=== PATIENT | female | born 1975 | race Hispanic/Latino ===

== ENCOUNTER 2017-11-24 23:09 | Emergency (ER) | payer MEDICAID, OTHER ==
[2017-11-25 00:26] LABS: APPEARANCE,URINE Cloudy (CLEAR); BILIRUBIN,URINE Negative (NEGATIVE); COLOR,URINE Yellow (YELLOW); GLUCOSE, URINE (UA) Negative (NEGATIVE); KETONES,URINE Negative (NEGATIVE); LEUKOCYTE ESTERASE ,URINE Large (NEGATIVE); NITRATE,URINE Negative (NEGATIVE); OCCULT BLOOD,URINE Moderate (NEGATIVE); PH,URINE 6.5 (5.0-8.0); PROTEIN,URINE Negative (NEGATIVE); UROBILINOGEN,URINE 0.2 mg/dL (0.2-1.0)
[2017-11-25 00:37] LABS: HCG,QUAL RESULT NEGATIVE (NEGATIVE)
[2017-11-25 00:43] LABS: BACTERIA,URINE Few /HPF (None Seen); MUCUS,URINE Moderate LPF (None Seen); SQUAMOUS EPITHELIAL CELL,UR Moderate /LPF (0-2)
[2017-11-25 00:47] LABS: BASOPHILS % (AUTO) 0.5 % (0.0-5.0); EOSINOPHILS % (AUTO) 1.3 % (0.0-8.0); HEMATOCRIT 38.4 % (36-48); LYMPHOCYTES % (AUTO) 20.4 % (21.0-51.0); MEAN CORPUSCULAR HEMOGLOBIN 23.6 pg (27.0-33.0); MEAN CORPUSCULAR HGB CONC 31.4 g/dL (32.0-36.0); MEAN CORPUSCULAR VOLUME 75.4 fL (79-99); MONOCYTES % (AUTO) 5.3 % (3.0-13.0); NEUTROPHILS % (AUTO) 72.5 % (40.0-77.0); PLATELET COUNT (AUTO) 319 K/uL (130-400); RED BLOOD CELL COUNT(AUTO) 5.09 MIL/uL (4.00-5.50); RED CELL DISTRIBUTION WIDTH 16.6 % (11.0-15.5); WHITE BLOOD COUNT (AUTO) 13.3 K/uL (4.8-10.8)
[2017-11-25 00:54] LABS: POTASSIUM 3.2 mmol/L (3.5-5.1)
[2017-11-25 00:58] LABS: AMYLASE 29 U/L (25-115); LIPASE 91 U/L (114-286)
[2017-11-25 01:03] LABS: ALBUMIN 3.4 g/dL (3.5-5.0); BILIRUBIN,TOTAL 0.3 mg/dL (0.2-1.0); TOTAL PROTEIN, SERUM 8.5 g/dL (6.0-8.3)
[2017-11-25] MEDS ORDERED: CEFTRIAXONE SODIUM 1 GM ONE (01:13)
[2017-11-25] MEDS ORDERED: SODIUM CHLORIDE 0.9% 1000ML 1,000 ML IV ONE (01:13)
[2017-11-25] MEDS ORDERED: KETOROLAC TROMETHAMINE 30MG/ML ONE (01:13)
== END 2017-11-25 04:13 | disposition home or self-care (01) ==
LOC: EDH 23:09
DX: N10 Acute pyelonephritis (principal); M79.1 Myalgia
CPT/HCPCS: 36415; 71045; 74176; 80053; 81001; 81025; 82150; 83690; 85025; 87088; 96361; 96374; 96375; 99285; A4218; J0696; J1885; J7030

== ENCOUNTER → 2018-10-01 | Outpatient (CLI) | payer MEDICAID ==
--- NOTE | 2018-10-01 11:16 | NUR ---
MBSS COMPLETED. SHALLOW PENETRATION WITH THIN LIQUIDS. RECOMMEND REGULAR TEXTURE, THIN LIQUIDS; PILLS WHOLE WITH LIQUIDS. PATIENT INFORMATION: Pt IS A 43 YEAR OLD FEMALE REFERRED FOR AN MBSS SECONDARY TO RECENT THYROID NODULES. Pt REPORTS THAT SHE HAS DIFFICULTY SWALLOWING IN OCCASIONS. Pt REPORTS THAT BIOPSY OF NODULE WAS NEGATIVE. Pt WITH A PAST MEDICAL HISTORY SIGNIFICANT FOR HYPERTENSION. 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 RESULTING IN SHALLOW FLASH PENETRATION WITH THIN LIQUIDS VIA CUP SIP. NO ASPIRATION OR DEEP PENETRATION PRESENT WITH ANY TEXTURE. TRIALS: 1. TSP PUREED: GOOD 2. TSP PUDDING: GOOD 3. TSP: MIXED TEXTURE: GOOD 4. COOKIE: GOOD 5. CUP SIP THIN LIQUIDS: SHALLOW PENETRATION 6. STRAW SIP THIN LIQUIDS: GOOD RECOMMENDATIONS: 1. REGULAR SOLIDS, THIN LIQUIDS; PILLS WHOLE WITH LIQUIDS 2. COMPENSATORY STRATEGIES: *SEATED AT 90 *SLOW RATE G-CODES SWALLOWING: [id number] Addendum: 10/02/18 at [address] Amended: Links added.
== END | disposition home or self-care (01) ==
LOC: RAH 10:40
PROVIDERS: ATTEND Otolaryngology Plastic Surgery within the Head & Neck
DX: R13.10 Dysphagia, unspecified (principal); R63.3 Feeding difficulties
CPT/HCPCS: 74230; 92611

== ENCOUNTER 2019-10-13 17:39 | Emergency (ER) | payer MEDICAID ==
[2019-10-13] MEDS ORDERED: SODIUM CHLORIDE 0.9% 1000ML 1,000 ML IV ONE (18:42)
[2019-10-13 18:47] LABS: APPEARANCE,URINE Clear (CLEAR); BILIRUBIN,URINE Negative (NEGATIVE); COLOR,URINE Yellow (YELLOW); GLUCOSE, URINE (UA) Negative (NEGATIVE); KETONES,URINE Negative (NEGATIVE); LEUKOCYTE ESTERASE ,URINE Negative (NEGATIVE); NITRATE,URINE Negative (NEGATIVE); OCCULT BLOOD,URINE Small (NEGATIVE); PH,URINE 8.5 (5.0-8.0); PROTEIN,URINE Negative (NEGATIVE); UROBILINOGEN,URINE 0.2 mg/dL (0.2-1.0)
[2019-10-13] MEDS ORDERED: ACETAMINOPHEN EXTRA STRENGTH 500 MG TABLET ONE (18:47)
[2019-10-13 19:15] LABS: BACTERIA,URINE Few /HPF (None Seen); MUCUS,URINE Few LPF (None Seen); SQUAMOUS EPITHELIAL CELL,UR Few /HPF (0-2)
[2019-10-13 20:07] LABS: RAPID GROUP A STREP POSITIVE (NEGATIVE)
[2019-10-13] MEDS ORDERED: METOPROLOL TARTRATE 1 MG/ML 5ML VIAL IV ONE (21:10)
== END 2019-10-13 21:35 | disposition home or self-care (01) ==
LOC: EEVIPCON 17:39 → EDH 17:39
DX: J10.1 Influenza due to other identified influenza virus with other respiratory manifestations (principal); I10 Essential (primary) hypertension; Z90.49 Acquired absence of other specified parts of digestive tract; Z98.51 Tubal ligation status
CPT/HCPCS: 71046; 81001; 87804 ×2; 87880; 93005; 96374; 99285; J3490; J7030

== ENCOUNTER 2020-03-07 22:06 | Emergency (ER) | payer MEDICAID ==
[2020-03-07] MEDS ORDERED: ACETAMINOPHEN EXTRA STRENGTH 500 MG TABLET ONE (22:36)
[2020-03-07 23:28] LABS: RAPID GROUP A STREP NEGATIVE (NEGATIVE)
== END 2020-03-08 01:05 | disposition home or self-care (01) ==
LOC: EDH 22:06
DX: J02.9 Acute pharyngitis, unspecified (principal); R50.9 Fever, unspecified; R05 Cough; Z20.828 Contact with and (suspected) exposure to other viral communicable diseases; E03.9 Hypothyroidism, unspecified; I10 Essential (primary) hypertension
CPT/HCPCS: 36415; 71045; 87635; 87804; 87880

== ENCOUNTER 2020-03-19 | Emergency (ER) | payer MEDICAID | END 2020-03-19 17:24 | disposition home or self-care (01) | DX: U07.1 COVID-19 (principal); J12.89 Other viral pneumonia; R05 Cough; I10 Essential (primary) hypertension; E03.9 Hypothyroidism, unspecified; Z90.49 Acquired absence of other specified parts of digestive tract; Z98.890 Other specified postprocedural states ==

== ENCOUNTER → 2020-05-29 | Outpatient (CLI) | payer MEDICAID | END | disposition home or self-care (01) | LOC: RAH 10:27 | PROVIDERS: ATTEND Family Medicine | DX: E04.2 Nontoxic multinodular goiter (principal); E04.1 Nontoxic single thyroid nodule | CPT/HCPCS: 76536 ==

== ENCOUNTER 2020-06-22 15:37 | Emergency (ER) | payer MEDICAID ==
[2020-06-22 15:56] LABS: BASOPHILS % (AUTO) 0.3 % (0.0-5.0); EOSINOPHILS % (AUTO) 0.5 % (0.0-8.0); HEMATOCRIT 41.4 % (36-48); LYMPHOCYTES % (AUTO) 12.3 % (21.0-51.0); MEAN CORPUSCULAR HEMOGLOBIN 25.1 pg (27.0-33.0); MEAN CORPUSCULAR HGB CONC 31.6 g/dL (32.0-36.0); MEAN CORPUSCULAR VOLUME 79.5 fL (79-99); MONOCYTES % (AUTO) 4.4 % (3.0-13.0); PLATELET COUNT (AUTO) 293 K/uL (130-400); RED BLOOD CELL COUNT(AUTO) 5.21 MIL/uL (4.00-5.50); RED CELL DISTRIBUTION WIDTH 14.2 % (11.0-15.5); WHITE BLOOD COUNT (AUTO) 14.8 K/uL (4.8-10.8)
[2020-06-22 16:08] LABS: POTASSIUM 3.6 mmol/L (3.5-5.1)
[2020-06-22 16:13] LABS: ALBUMIN 3.9 g/dL (3.5-5.0); BILIRUBIN,TOTAL 0.5 mg/dL (0.2-1.0); TOTAL PROTEIN, SERUM 8.8 g/dL (6.0-8.3)
[2020-06-22 16:15] LABS: INR 0.94 (0.85-1.15); PARTIAL THROMBOPLASTIN TIME 27.9 SEC (26.3-35.5); PROTHROMBIN TIME 10.2 SEC (9.6-11.6)
[2020-06-22] MEDS ORDERED: DIAZEPAM 5 MG/ML 2 ML SYG ONE (17:28)
[2020-06-22] MEDS ORDERED: IOHEXOL-350 50ML VIAL IV ONE (17:28)
== END 2020-06-22 20:04 | disposition home or self-care (01) ==
LOC: EDH 15:37
DX: E00-E89 Endocrine, nutritional and metabolic diseases (principal); I10 Essential (primary) hypertension; E03.9 Hypothyroidism, unspecified; Z90.49 Acquired absence of other specified parts of digestive tract; Y83.8 Other surgical procedures as the cause of abnormal reaction of the patient, or of later complication, without mention of misadventure at the time of the procedure; Y92.89 Other specified places as the place of occurrence of the external cause
CPT/HCPCS: 36415; 70491; 71045; 80053; 85025; 85610; 85730; 96374; 99285; J3360; Q9967

== ENCOUNTER 2021-08-16 17:36 | Emergency (ER) | payer MEDICAID ==
[~2021-08-16] VITALS: Ht 162.6 cm; Wt 83.0 kg
[2021-08-16 17:39] VITALS: BP 157/104
[2021-08-16 18:16] LABS: BASOPHILS % (AUTO) 0.3 % (0.0-5.0); EOSINOPHILS % (AUTO) 0.8 % (0.0-8.0); HEMATOCRIT 41.6 % (36-48); MEAN CORPUSCULAR HEMOGLOBIN 24.7 pg (27.0-33.0); MEAN CORPUSCULAR HGB CONC 30.5 g/dL (32.0-36.0); MEAN CORPUSCULAR VOLUME 80.9 fL (79-99); MONOCYTES % (AUTO) 5.9 % (3.0-13.0); NEUTROPHILS % (AUTO) 71.4 % (40.0-77.0); PLATELET COUNT (AUTO) 307 K/uL (130-400); RED BLOOD CELL COUNT(AUTO) 5.14 MIL/uL (4.00-5.50); RED CELL DISTRIBUTION WIDTH 14.8 % (11.0-15.5); WHITE BLOOD COUNT (AUTO) 13.2 K/uL (4.8-10.8)
[2021-08-16 18:18] LABS: APPEARANCE,URINE Clear (CLEAR); BILIRUBIN,URINE Negative (NEGATIVE); COLOR,URINE Yellow (YELLOW); GLUCOSE, URINE (UA) Negative (NEGATIVE); KETONES,URINE Negative (NEGATIVE); LEUKOCYTE ESTERASE ,URINE Moderate (NEGATIVE); NITRATE,URINE Negative (NEGATIVE); OCCULT BLOOD,URINE Moderate (NEGATIVE); PH,URINE 6.5 (5.0-8.0); PROTEIN,URINE Negative (NEGATIVE); UROBILINOGEN,URINE 0.2 mg/dL (0.2-1.0)
[2021-08-16 18:25] LABS: BACTERIA,URINE Few /HPF (None Seen); SQUAMOUS EPITHELIAL CELL,UR Few /HPF (0-2)
[2021-08-16 18:27] LABS: CREATININE 1.1 mg/dL (0.5-1.5); POTASSIUM 3.8 mmol/L (3.5-5.1)
[2021-08-16] MEDS ORDERED: 0.9%NACL 1000ML 1,000 ML IV ONE (18:30)
[2021-08-16] MEDS ORDERED: ONDANSETRON 4MG INJ IVP ONE (18:30)
[2021-08-16] MEDS ORDERED: KETOROLAC 30MG VIAL (30MG/ML) IV ONE (18:30)
[2021-08-16 18:31] LABS: ALBUMIN 3.8 g/dL (3.5-5.0); BILIRUBIN,TOTAL 0.3 mg/dL (0.2-1.0); TOTAL PROTEIN, SERUM 8.8 g/dL (6.0-8.3)
[2021-08-16] MEDS ORDERED: CEPH500B PO (19:03)
[2021-08-16] MEDS ORDERED: PHEN-847 PO (19:03)
[2021-08-16] MEDS ORDERED: CEFTRIAXONE 1G VIAL IVP ONE (19:30)
== END 2021-08-16 19:30 | disposition home or self-care (01) ==
LOC: EDH 17:36
DX: N39.0 Urinary tract infection, site not specified (principal); E03.9 Hypothyroidism, unspecified; I10 Essential (primary) hypertension; Z90.49 Acquired absence of other specified parts of digestive tract; Z98.51 Tubal ligation status
CPT/HCPCS: 36415; 74176; 80053; 81001; 83690; 85025; 87088; 96361; 96374; 96375; 99284; J0696; J1885; J2405; J7030

== ENCOUNTER 2023-11-20 10:31 | Emergency (ER) | payer MEDICAID ==
[~2023-11-20] VITALS: Ht 162.6 cm; Wt 85.7 kg
[~2023-11-20 10:31] MED LIST: CEPH500B PO; PHEN-847 PO
[2023-11-20 11:21] LABS: HEMATOCRIT 40.7 % (36-48); MEAN CORPUSCULAR HEMOGLOBIN 24.4 pg (27.0-33.0); MEAN CORPUSCULAR VOLUME 81.2 fL (79-99); PLATELET COUNT (AUTO) 320 K/uL (130-400); RED BLOOD CELL COUNT(AUTO) 5.01 MIL/uL (4.00-5.50); RED CELL DISTRIBUTION WIDTH 15.4 % (11.0-15.5); WHITE BLOOD COUNT (AUTO) 9.6 K/uL (4.8-10.8)
[2023-11-20 11:33] LABS: CREATININE 0.8 mg/dL (0.5-1.5); POTASSIUM 3.9 mmol/L (3.5-5.1)
[2023-11-20] MEDS ORDERED: ALCA5DRO OP (14:18)
[2023-11-20] MEDS ORDERED: LORA10TA7 PO (14:19)
[2023-11-20 14:43] VITALS: BP 133/78; PULSE 78; RESP 18; O2SAT 98
== END 2023-11-20 14:50 | disposition home or self-care (01) ==
LOC: EDH 10:31
DX: B30.9 Viral conjunctivitis, unspecified (principal); I10 Essential (primary) hypertension; E03.9 Hypothyroidism, unspecified; Z90.49 Acquired absence of other specified parts of digestive tract; Z98.890 Other specified postprocedural states
CPT/HCPCS: 36415; 80048; 85027

== ENCOUNTER 2024-03-22 11:47 | Emergency (ER) | payer MEDICAID, OTHER ==
[~2024-03-22] VITALS: Ht 162.6 cm; Wt 83.9 kg
[~2024-03-22 11:47] MED LIST changes: +ALCA5DRO OP; +LORA10TA7 PO
[2024-03-22 12:16] LABS: BASOPHILS # (AUTO) 0.04 K/uL (0.00-0.20); BASOPHILS % (AUTO) 0.3 % (0.0-5.0); EOSINOPHILS # (AUTO) 0.11 K/uL (0.00-0.70); EOSINOPHILS % (AUTO) 0.8 % (0.0-8.0); HEMATOCRIT 42.3 % (36-48); IMMATURE GRANULOCYTE ABSOLUTE 0.07 K/uL (0-1); LYMPHOCYTES # (AUTO) 2.5 K/uL (1.0-4.8); LYMPHOCYTES % (AUTO) 19.2 % (21.0-51.0); MEAN CORPUSCULAR HEMOGLOBIN 23.9 pg (27.0-33.0); MEAN CORPUSCULAR HGB CONC 30.7 g/dL (32.0-36.0); MEAN CORPUSCULAR VOLUME 77.8 fL (79-99); MONOCYTES # (AUTO) 0.5 K/uL (0.1-1.0); MONOCYTES % (AUTO) 3.6 % (3.0-13.0); NEUTROPHILS # (AUTO) 9.9 K/uL (1.8-7.7); NEUTROPHILS % (AUTO) 75.6 % (40.0-77.0); PLATELET COUNT (AUTO) 312 K/uL (130-400); RED BLOOD CELL COUNT(AUTO) 5.44 MIL/uL (4.00-5.50); WHITE BLOOD COUNT (AUTO) 13.1 K/uL (4.8-10.8)
[2024-03-22 12:40] LABS: CREATININE 0.9 mg/dL (0.5-1.0)
[2024-03-22 12:44] LABS: ALBUMIN 3.3 g/dL (3.5-5.0); BILIRUBIN,TOTAL 0.7 mg/dL (0.2-1.0); TOTAL PROTEIN, SERUM 8.1 g/dL (6.0-8.3)
[2024-03-22] MEDS: KETOROLAC 30MG VIAL (30MG/ML) IVP ONE (12:52)
[2024-03-22] MEDS: 0.9%NACL 1000ML 1,000 ML IV ONE (12:53)
[2024-03-22 13:03] LABS: APPEARANCE,URINE CLOUDY (CLEAR); BILIRUBIN,URINE NEGATIVE (NEGATIVE); COLOR,URINE YELLOW (YELLOW); GLUCOSE, URINE (UA) NEGATIVE (NEGATIVE); KETONES,URINE NEGATIVE (NEGATIVE); LEUKOCYTE ESTERASE ,URINE 250 Leu/uL (NEGATIVE); NITRATE,URINE NEGATIVE (NEGATIVE); OCCULT BLOOD,URINE LARGE (NEGATIVE); PH,URINE 5.5 (5.0-8.0); PROTEIN,URINE 70 mg/dL (NEGATIVE); UROBILINOGEN,URINE 0.2 mg/dL (0.2-1.0)
[2024-03-22 13:04] LABS: ADD UA MICROSCOPIC YES
[2024-03-22 13:06] LABS: BACTERIA,URINE MOD /HPF (None Seen); MUCUS,URINE RARE LPF (None Seen); SQUAMOUS EPITHELIAL CELL,UR MANY /HPF (0-2)
[2024-03-22] MEDS: CEFTRIAXONE 1G VIAL IM ONE (14:30)
[2024-03-22] MEDS ORDERED: IOHEXOL 350 MG/ML 100ML INFUS..BTL IV ONE (14:37)
[2024-03-22] MEDS ORDERED: IOHEXOL-350 75 ML VIAL IV ONE (14:56)
[2024-03-22] MEDS ORDERED: AMOX1TAB16 PO (15:46)
[2024-03-22] MEDS ORDERED: IBUP-2077 PO (15:46)
[2024-03-22 16:05] VITALS: BP 156/101; PULSE 66; RESP 17; O2SAT 98
== END 2024-03-22 16:05 | disposition home or self-care (01) ==
LOC: EDH 11:47
DX: K42.9 Umbilical hernia without obstruction or gangrene (principal); N30.01 Acute cystitis with hematuria; K76.0 Fatty (change of) liver, not elsewhere classified; I10 Essential (primary) hypertension; E03.9 Hypothyroidism, unspecified; Z90.49 Acquired absence of other specified parts of digestive tract
CPT/HCPCS: 99285; 74177; 96374; 96361; 80053; 83690; 85025; 87088; 81001; 36415; 96372; J7030; J0696; J1885; Q9967

== ENCOUNTER 2024-11-12 03:01 | Emergency (ER) | payer BC ==
[~2024-11-12] VITALS: Ht 162.6 cm; Wt 78.5 kg
[~2024-11-12 03:01] MED LIST changes: +AMOX1TAB16 PO; +IBUP-2077 PO
--- NOTE | 2024-11-12 03:56 | ERN ---
General Chief Complaint: Numbness Stated Complaint: C/O NUMBNESS TO RT HAND Time Seen by MD: 03:04 Time Seen by Midlevel: 03:04 Source: patient History of Present Illness Initial Comments Patient is a 49-year-old female with a past medical history of hypertension on lisinopril 10 mg presenting to the emergency department with numbness to the tips of all five digits of the right hand. 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 Patient has no other complaints on arrival. She does report coming out of a recent flu-like illness. Patient reports having a history of hypertension but has not taken her lisinopril over the last two months. Allergies: Coded Allergies: No Known Drug Allergies (Unverified Allergy, Unknown, 03/08/20) Home Meds Active Scripts Amoxicillin/Potassium Clav (Amox Tr-K Clv 875-125 mg Tab) 875 Mg-125 Mg Tablet, 1 EACH PO BID for 7 Days, #14 TAB 0 Refills Prov:SILVIA CAMACHO BRAKE OPERATOR HELPER 03/22/24 Ibuprofen (Ibuprofen 800 mg Tab) 800 Mg Tab, 800 MG PO Q8H PRN for fever or pain, #30 TAB 0 Refills Prov:SILVIA CAMACHO BRAKE OPERATOR HELPER 03/22/24 Loratadine (Loratadine) 10 Mg Tablet, 10 MG PO DAILY, #7 TAB Prov:LEDA CAGLE V AUTO REPAIR SHOP MANAGER 11/20/23 Alcaftadine (Lastacaft Once Daily Relief) 0.25 % Drops, 1 DROP OP DAILY for 7 Days, #5 ML Prov:LEDA CAGLE V AUT[employer] REPAIR SHOP MANAGER 11/20/23 Phenazopyridine HCl (Pyridium) 200 Mg Tab, 200 MG PO TIDPC for 3 Days, #9 TAB TAKE WITH FOOD TO PREVENT STOMACH UPSET. Prov:LEE ANN 08/16/21 Cephalexin Monohydrate (Keflex) 500 Mg Cap, 500 MG PO TID for 7 Days, #21 CAP Prov:LEE ANN 08/16/21 Past Medical History Past Medical History: Hypertension Past Surgical History: Other Surgical History Other: THYROIDECTOMY Family History Family History: HTN Social History Social History: Negative, Lives with family Female( History) History: Not Applicable : 7 Para: 5 Aborts: 2 ROS Dictation CONSTITUTIONAL: Negative except for HPI HEAD/FACE: Negative except for HPI EENT: Negative except for HPI RESPIRATORY: Negative except for HPI GASTROINTESTINAL/ABDOMINAL: Negative except for HPI GENITOURINARY: Negative except for HPI MUSCULOSKELETAL: Negative except for HPI INTEGUMENTARY: Negative except for HPI NEUROLOGICAL/PSYCH: Negative except for HPI HEMATOLOGIC/LYMPHATIC: Negative except for HPI All Systems Negative, Except as noted above. 13 point review of systems assessed and all negative except for above. Physical Exam Physical Exam Dictation Vital Signs reviewed General Appearance: Alert, oriented x 3, no acute distress, well developed, nourished. Head and Face: non-traumatic. Eyes: PERRL, pink conjunctivas, eyelid no trauma, anterior chamber with arcus senilis. Ears: Pinnas intact and no signs of trauma or erythema ear canals clear and no discharge TM no erythema Nose: No discharge, no bleeding. Oropharynx: Mouth normal, tongue pink, pharynx clear,no erythema, tonsils no exudates, no abscesses noted, mucous membrane moist Neck: Supple, non-tender, no thyromegaly, no masses, no JVD, no bruits Breast:Deferred Chest:No tenderness, no crepitus, no paradoxical movement, no retractions Lungs:Clear, well-ventilated, symmetric, no rales, no wheezing, no rhonchi, no stridor, good breath sounds bilaterally Heart: Regular rate, regular rhythm, no murmur, no gallops Vascular: no peripheral edema, Abdomen: Soft, positive bowel sounds, nondistended, no guarding, nontender, no rebound, no masses no hepatomegaly, no splenomegaly, no Ott's sign, no hernias. Rectal: Deferred Genital: Deferred Neurological: Normal speech, motor function intact, sensory function intact Musculoskeletal: Neck nontender, full range of motion, back nontender, full range of motion, Extremities: nontender, full range of motion Skin: Color pink, dry, no turgor, no rash, no lacerations, no abrasions, no contusions. Lymphatic: Deferred Results Laboratory and Microbiology Lab and Micro Result Laboratory Tests Test 11/12/24 04:01 White Blood Count 4.5 K/uL (4.8-10.8) L Red Blood Count 5.62 MIL/uL (4.00-5.50) H Hemoglobin 14.0 g/dL (12.0-16.0) Hematocrit 45.4 % (36-48) Mean Corpuscular Volume 80.8 fL (79-99) Mean Corpuscular Hemoglobin 24.9 pg (27.0-33.0) L Mean Corpuscular Hemoglobin Concent 30.8 g/dL (32.0-36.0) L Red Cell Distribution Width 14.7 % (11.0-15.5) Platelet Count 231 K/uL (130-400) Mean Platelet Volume 12.1 fL (7.5-10.5) H Immature Granulocyte % (Auto) 0.2 % (0-1) Neutrophils (%) (Auto) 48.7 % (40.0-77.0) Lymphocytes (%) (Auto) 40.8 % (21.0-51.0) Monocytes (%) (Auto) 6.5 % (3.0-13.0) Eosinophils (%) (Auto) 3.6 % (0.0-8.0) Basophils (%) (Auto) 0.2 % (0.0-5.0) Neutrophils # (Auto) 2.2 K/uL (1.8-7.7) Lymphocytes # (Auto) 1.8 K/uL (1.0-4.8) Monocytes # (Auto) 0.3 K/uL (0.1-1.0) Eosinophils # (Auto) 0.16 K/uL (0.00-0.70) Basophils # (Auto) 0.01 K/uL (0.00-0.20) Absolute Immature Granulocyte (auto 0.01 K/uL (0-1) Nucleated Red Blood Cells 0.0 % (0.0-0.19) Red Blood Cell Morphology See comments Sodium Level 142 mmol/L (136-145) Potassium Level 4.5 mmol/L (3.5-5.1) Chloride Level 103 mmol/L (101-111) Carbon Dioxide Level 32 mmol/L (21-32) Blood Urea Nitrogen 13 mg/dL (7-18) Creatinine 0.7 mg/dL (0.5-1.0) Glomerular Filtration Rate Calc 105 mL/min (>90) Random Glucose 96 mg/dL (70-105) Total Calcium 8.3 mg/dL (8.5-10.1) L Magnesium Level 1.90 mg/dL (1.80-2.40) Total Creatine Kinase 116 U/L (21-232) # Troponin I High Sensitivity 4 ng/L (4-50) B-Type Natriuretic Peptide 21 pg/mL (0-100) Labs Reviewed?: Yes MDM MDM: Patient is a 49-year-old female with a past medical history of hypertension on lisinopril 10 mg presenting to the emergency department with numbness to the tips of all five digits of the right hand. 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 Patient has no other complaints on arrival. She does report coming out of a recent flu-like illness. Patient reports having a history of hypertension but has not taken her lisinopril over the last two months. On physical examination patient is in no acute distress. Neurological examination is unremarkable. Patient has 5/5 strength to bilateral upper and lower extremities. There is some purple discoloration to the distal aspect of the digits of the right hand consistent with Raynaud's phenomenon. The remainder of her physical examination is unremarkable. A CT scan of the head was performed which does not reveal any acute abnormalities. Electrolytes are normal. CBC and chemistries are stable. The patient was observed in the ER we will be discharged home with supportive management. Differential diagnosis: Raynaud's phenomenon, carpal tunnel, electrolyte abnormality There are no social concerns with this patient. Prescription drug management Prescriptions will include: None Medical management and examination interpretation discussions were had by me with other qualified healthcare professionals as indicated for the patient's care. ED Course Orders Procedure Category Date Status Time 12 Lead Ekg Tracing- EKG 11/12/24 Complete Technical 03:44 Cbc With Differential LAB 11/12/24 Complete 03:44 Basic Metabolic Panel LAB 11/12/24 Complete 03:44 Creatine Kinase, Total LAB 11/12/24 Complete 03:44 B-Type Natriuretic LAB 11/12/24 Complete Peptide 03:44 Troponin I High LAB 11/12/24 Complete Sensitivity 03:44 Magnesium LAB 11/12/24 Complete 03:44 Ct Head/Brain W/O CT 11/12/24 Resulted Contrast 03:46 Clonidine Hcl 0.1 Mg PHA 11/12/24 Complete Tablet (Catapres 0. 04:00 0.9%Nacl 1000ml (Ns PHA 11/12/24 Complete 1000ml) 05:30 Current Medications Medications (Trade) Dose Ordered Sig/Aryan Route PRN Reason Start Time Stop Time Status Last Admin Dose Admin Clonidine HCl (CATApres 0.1 mg TAB) 0.1 mg ONCE ONCE PO 11/12/24 04:00 11/12/24 04:01 DC 11/12/24 04:06 Sodium Chloride 1,000 ml @ 0 mls/hr ONCE ONCE IV 11/12/24 05:30 11/12/24 05:31 DC 11/12/24 05:14 Vital Signs Date Time Temp Pulse Resp B/P (MAP) Pulse Ox O2 Delivery O2 Flow Rate FiO2 11/12/24 06:48 98.1 62 18 149/98 100 Room Air* 0 21 11/12/24 05:21 98.1 61 18 153/99 100 Room Air* 0 21 11/12/24 04:30 98.2 74 18 164/101 98 Room Air* 0 11/12/24 04:06 72 167/107 11/12/24 03:23 98.2 77 18 187/107 99 Room Air* 0 21 11/12/24 03:04 98.2 83 20 232/131 97 Room Air DX & DISP Disposition: Discharge Departure Impression: Primary Impression: Raynauds phenomenon Additional Impression: Elevated blood pressure reading Condition: Stable Additional Instructions: Your blood work today is stable. Your CT scan of the head does not show any acute intracranial abnormality. Please follow up with your primary care doctor. I have given you a short course of lisinopril 10 mg until you can see your doctor. Referrals: JEREMY FLORES MD (PCP) Time of Disposition: 06:28 I have reviewed the case, and I agree with, Diagnosis and Plan I performed the substantive portion of the visit. I have reviewed and personally made and approve the management plan that is documented in the note by myself or the SAYRA. I acknowledge for responsibility for the patient's management plan. LIANE LEONE Nov 12, 2024 03:56
[2024-11-12] MEDS: cloNIDine HCL 0.1 MG TABLET PO ONE (04:06)
[2024-11-12 04:10] LABS: BASOPHILS # (AUTO) 0.01 K/uL (0.00-0.20); BASOPHILS % (AUTO) 0.2 % (0.0-5.0); EOSINOPHILS # (AUTO) 0.16 K/uL (0.00-0.70); EOSINOPHILS % (AUTO) 3.6 % (0.0-8.0); HEMATOCRIT 45.4 % (36-48); IMMATURE GRANULOCYTE ABSOLUTE 0.01 K/uL (0-1); LYMPHOCYTES # (AUTO) 1.8 K/uL (1.0-4.8); LYMPHOCYTES % (AUTO) 40.8 % (21.0-51.0); MEAN CORPUSCULAR HEMOGLOBIN 24.9 pg (27.0-33.0); MEAN CORPUSCULAR HGB CONC 30.8 g/dL (32.0-36.0); MEAN CORPUSCULAR VOLUME 80.8 fL (79-99); MONOCYTES # (AUTO) 0.3 K/uL (0.1-1.0); MONOCYTES % (AUTO) 6.5 % (3.0-13.0); NEUTROPHILS # (AUTO) 2.2 K/uL (1.8-7.7); NEUTROPHILS % (AUTO) 48.7 % (40.0-77.0); PLATELET COUNT (AUTO) 231 K/uL (130-400); RED BLOOD CELL COUNT(AUTO) 5.62 MIL/uL (4.00-5.50); RED CELL DISTRIBUTION WIDTH 14.7 % (11.0-15.5); WHITE BLOOD COUNT (AUTO) 4.5 K/uL (4.8-10.8)
[2024-11-12 04:30] LABS: CREATININE 0.7 mg/dL (0.5-1.0); MAGNESIUM 1.9 mg/dL (1.80-2.40); POTASSIUM 4.5 mmol/L (3.5-5.1)
[2024-11-12 04:32] LABS: B-TYPE NATRIURETIC PEPTIDE 21 pg/mL (0-100)
[2024-11-12] MEDS: 0.9%NACL 1000ML 1,000 ML IV ONE (05:14)
[2024-11-12 06:48] VITALS: BP 149/98; PULSE 62; RESP 18; TEMP 98; O2SAT 100
--- NOTE | 2024-11-12 08:04 | EKG ---
[facility] Test Date: 2024-11-12 Test Time: 03:58:54 Pat Name: ROLLY MELENDREZ Department: [facility] Room: Gender: F Programmer Analyst: 89 : 1975 Requested By: LIANE LEONE Order Number: [id number] Reading MD: Jacky Alvarado Measurements Intervals [place] Rate: 64 P: 24 CT: 148 QRS: 16 QRSD: 96 T: 20 QT: 477 QTc: 494 Interpretive Statements Sinus rhythm Compared to ECG 03/19/2020 14:10:12 Left ventricular hypertrophy no longer present Electronically Signed On 11-13-2024 17:14:11 HEAD GRINDER by Jacky Alvarado Please click the below link to view image of tracing.
--- NOTE | 2024-11-12 08:26 | HMCIMG ---
Exam: NONCONTRAST CT BRAIN REASON: hypertensive/numbness. COMPARISON: None. TECHNIQUE: Images are obtained from vertex to the skull base. The exam was performed without IV contrast. FINDINGS: There is normal appearing brain parenchyma. There are no focal mass lesions. There is is no evidence of intracranial hemorrhage or acute stroke. Ventricles and sulci appear normal. Posterior fossa and brainstem structures are unremarkable. Paranasal sinuses and remaining extracranial soft tissues appear normal as well. IMPRESSION: 1. Normal noncontrast CT brain. CT was performed with one or more following dose reduction techniques: automated exposure control, adjustment of the mA and kv according to patient's size, or use of a iterative reconstruction technique.
== END 2024-11-12 07:00 | disposition home or self-care (01) ==
LOC: EDH 03:01
DX: I73.00 Raynaud's syndrome without gangrene (principal); I10 Essential (primary) hypertension; Z90.89 Acquired absence of other organs
CPT/HCPCS: 99284; 96360; 70450; 82550; 83735; 84484; 80048; 83880; 85025; 36415; 93005; J7030